=== PATIENT | female | born 1995 | race African-American/Black ===

== ENCOUNTER 2016-08-04 04:59 | Emergency (ER) | payer SELFPAY ==
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
== END 2016-08-04 06:15 | disposition home or self-care (01) ==
LOC: ER 04:59
DX: S02.2XXA Fracture of nasal bones, initial encounter for closed fracture (principal); S01.21XA Laceration without foreign body of nose, initial encounter; S01.112A Laceration without foreign body of left eyelid and periocular area, initial encounter; S00.83XA Contusion of other part of head, initial encounter; S50.312A Abrasion of left elbow, initial encounter; S50.311A Abrasion of right elbow, initial encounter; R04.0 Epistaxis; W10.9XXA Fall (on) (from) unspecified stairs and steps, initial encounter